=== PATIENT | female | born 1950 | race Caucasian/White ===

== ENCOUNTER 2023-11-01 18:19 | Inpatient (IN) | payer OTHER, SELFPAY ==
[2023-11-01] VITALS (26 sets, daily range): BP systolic 116–172; BP diastolic 53–116; BMI 30.2; BMI 29.0
[2023-11-01 13:25] LABS: % Basophils 0.8 % (0-2); % Eosinophils 2.7 % (0-6); % Immature Granulocytes 0.6 % (0-0.5); % Monocytes 8.6 % (1.7-9.3); % Neutrophils 56.3 % (42.2-75.2); Absolute Basophils 0.1 10^3/uL (0-0.2); Absolute Eosinophils 0.3 10^3/uL (0-0.7); Absolute Immature Granulocytes 0.1 10^3/uL (0-0.05); Absolute Monocytes 0.8 10^3/uL (0.1-0.6); Absolute Neutrophils 5.4 10^3/uL (1.4-6.5); Hematocrit 40.4 % (37.0-47.0); Hemoglobin 13.7 g/dL (12.0-16.0); Mean Corp Hgb Conc. 33.9 g/dL (33.0-37.0); Mean Corpuscular Hgb 29.1 pg (27.0-31.0); Mean Corpuscular Volume 85.8 fL (81.0-99.0); Mean Platelet Volume 10.1 fL (7.4-10.4); Nucleated Red Blood Cells % 0 %; Platelet Count 242 10^3/uL (130-400); Red Blood Cell Count 4.71 10^6/uL (4.20-5.40); Red Cell Dist. Width 12.8 % (11.5-14.5); White Blood Cell Count 9.6 10^3/uL (4.8-10.8)
--- NOTE | 2023-11-01 13:34 | ED.GENMED ---
History of Present Illness
<Spring Mckeon PA-C - Last Filed: 11/01/23 18:52>
General
Chief Complaint: Heart Rate Problem
Source: patient
Exam Limitations: none
Time Seen by Provider: 11/01/23 13:28
Nursing documentation reviewed up to this point in time: agreed with
Travel History
Have you had any contact with someone who has COVID-19?: No
Do you have any symptoms of coronavirus? Fever > 100 degrees, chills, cough, shortness of breath, sore throat, loss of taste or smell, muscle aches, or headache?: No
History of Present Illness
History of Present Illness:
This is a 72-year-old female with a past medical history of endometriosis, vasovagal syncope presenting emergency department today with concerns of a syncopal episode and palpitations. Patient states that she was at [facility] this morning when she
started to feel weak, diaphoretic, and lightheaded. Patient states that she went out to the bathroom and was joined by 2 nurse practitioners to help lower her to the ground. Patient states that she subsequently had a syncopal episode. Patient
states that when she came to it, she felt some chest pain lasting a few minutes as well as palpitations. Currently, patient denies chest pain, denies shortness of breath dizziness. Patient does still feel palpitations. Patient denies any history
of A-fib in the past. Patient does have family history of heart disease in her father who in his 60s due to a heart attack. Patient is no known family history of A-fib. Patient denies any alcohol or tobacco use. Patient does use caffeine
daily, she will have multiple cans of beer per day. Patient does not take a blood thinner
Past History
<Spring Mckeon PA-C - Last Filed: 11/01/23 18:52>
Past History
ED Past Medical History: Other (Endometriosis)
ED Past Surgical History: Gynecological
Social History
Tobacco: Non-smoker
Alcohol: None
Drug: None
Review of Systems
<Spring Mckeon PA-C - Last Filed: 11/01/23 18:52>
Review of Systems
All Other Systems: ROS reviewed and negative except as documented in HPI and ROS
Phy Exam
<Spring Mckeon PA-C - Last Filed: 11/01/23 18:52>
Physical Exam
Physical Exam:
General: Patient is well appearing and in no acute distress; non-toxic
Skin: Warm and dry, no rashes or lesions
Head: Normocephalic, atraumatic
Eyes: Sclera non-icteric. EOMs intact. PERRLA.
Cardiac: Heart rate is irregular, rhythm regular, no murmurs heard, no tenderness palpation external chest wall
Peripheral Vascular: No lower extremity swelling or edema. 2+ dorsalis pedis pulses bilaterally.
Pulm: Normal respiratory effort
Abdomen: No abdominal tenderness
Neuro: CN II-XII intact, no focal neurologic deficits.
Psychiatric: Appropriate mood and affect.
Course
<Spring Mckeon PA-C - Last Filed: 11/01/23 18:52>
Orders/Labs/Results
Orders:
Orders
11/01/23 Lunch
Cholesterol Lowering
At Your Request: Full Participation
Cholesterol Lowering: Sodium, 2 Gram
11/01/23 13:11
Electrocardiogram (*1) Urgent
Reason for Study: Chest Pain
Cardiac Monitoring- Treatment ONCE
EKG- Treatment ONCE
IV Insert/Care/Rem.- Treatment PRN
O2 Therapy [RESP] Urgent
Titrate/Wean O2 to maintain O2 sat greater than (%): 90
Special Instructions: Maintain sats >/=90%
Pulse Ox/spot Check [RESP] Urgent
Quantity: 1
Special Instructions: ON ROOM AIR
11/01/23 13:12
Complete Blood Count/With Diff Urgent
Comprehensive Metabolic Panel Urgent
Magnesium Urgent
Comment: ADDON
TSH Urgent
Comment: ADDON
11/01/23 14:12
0.9% Sodium Chloride 1000 ml [Nss] 1,000 ml IV BOLUS
Diltiazem HCl [Cardizem] 10 mg IV NOW STA
11/01/23 14:15
Diltiazem 125 mg/125 ml Nss [Cardizem] 125 mg in 125 ml IV PER PROTOCOL
Initial dose in mg/hr, then titrate:: 5
Titrate to keep:: Heart rate 80-100 bpm
Titrate by mg/hr:: 5 mg/hr
Frequency of titrations (minutes):: 15
Maximum dose in mg/hr:: 15
11/01/23 14:26
Add On- LAB Urgent
Tests Added?: tropnin
11/01/23 14:46
Troponin I Routine
Comment: Collect Green Top Please
11/01/23 17:23
Admit/Transfer Patient As Directed
Co-Sign Provider:
Level of Care: Inpatient admission
Assign to:: IMU- Intermediate Care
Physician / Group: Megan/Hospitalist
Diagnosis: a.fib with RVR
Reason for Hospitalization: a.fib with RVR
Expected length of stay greater than two midnights?: Yes
ELOS- Estimated Length of Stay in days: 3
I certify the patient meets the requirements for IP care: Yes
11/01/23 17:24
Code Status As Directed
Resuscitation Status: Full Code
11/01/23 17:30
Heparin 05173 Units/250 ml 25,000 units in 250 ml IV PER PROTOCOL
Weight to be used for heparin protocol in kilograms (kg):: 82.4
Protocol:: Cardiac Tx/Acute Coronary
PTT Goal Range to be used:: PTT 73 to 111 seconds
Order type:: Initial
INITIAL Infusion Dose (UNITS/KG/hr) & then follow protocol:: 12 units/kg/hr
Infusion Dose in UNITS/hr & then follow protocol (UNITS/hr):: 1,000
INFUSION RATE in mL/hr & then follow protocol (mL/hr):: 10
PTT less than or equal to 64 seconds:: Increase rate by 200 units/hr (+ 2 mL/hr)
PTT 64.1 to 72.9 seconds:: Increase rate by 100 units/hr (+ 1 mL/hr)
PTT 73 to 111 seconds:: Target Range. No change in rate.
PTT 111.1 to 130.9 seconds:: Decrease rate by 100 units/hr (- 1 mL/hr)
PTT 131 to 199.9 seconds:: HOLD for 1 hr. Then decrease rate by 200 units/hr (- 2 mL/hr)
PTT greater than or equal to 200 seconds:: HOLD for 2 hrs & Notify Provider. Then decrease by 200 units/hr (-
2 mL/hr)
Lab follow-up:: Each change, PTT q6h until 2 consecutive are therapeutic. Then PTT
daily.
11/01/23 17:[address] Non Medication Order As Directed
Physician Order: PTT 6 hours after initial start of Heparin infusion
11/01/23 17:45
Add On- LAB Stat
Tests Added?: magnesium, TSH
11/01/23 18:09
PTT Urgent
Comment: Obtain baseline before beginning heparin infusion if not already collected
11/01/23 18:18
Electrocardiogram (*1) Stat
Reason for Study: Abnormal EKG
EKG- Treatment ONCE
11/01/23 18:30
0.9% Sodium Chloride 1000 ml [Nss] 1,000 ml IV 100 mls/hr
Abnormal Lab Results
11/01/23
13:12
Abs Immat Gran (auto) 0.1 H 10^3/uL
(0-0.05)
Absolute Monos (auto) 0.8 H 10^3/uL
(0.1-0.6)
Immature Gran % 0.6 H %
(0-0.5)
Chloride 108 H mmol/L
(98-107)
Glucose 115 H mg/dl
(70-99)
11/01/23 13:12
11/01/23 13:12
Vital Signs
Initial and Last Documented VS:
Initial Vital Signs
Temp Pulse Resp BP Pulse Ox
97.8 F 141 18 158/110 95
11/01/23 13:06 11/01/23 13:06 11/01/23 13:06 11/01/23 13:06 11/01/23 13:06
Last Documented Vital Signs
Temp Pulse Resp BP Pulse Ox
97.8 F 132 15 140/97 97
11/01/23 13:06 11/01/23 18:00 11/01/23 18:00 11/01/23 17:30 11/01/23 17:30
<Todd Henson, - Last Filed: 11/01/23 15:12>
Orders/Labs/Results
Orders:
Orders
11/01/23 Lunch
Cholesterol Lowering
At Your Request: Full Participation
Cholesterol Lowering: Sodium, 2 Gram
11/01/23 13:11
Electrocardiogram (*1) Urgent
Reason for Study: Chest Pain
Cardiac Monitoring- Treatment ONCE
EKG- Treatment ONCE
IV Insert/Care/Rem.- Treatment PRN
O2 Therapy [RESP] Urgent
Titrate/Wean O2 to maintain O2 sat greater than (%): 90
Special Instructions: Maintain sats >/=90%
Pulse Ox/spot Check [RESP] Urgent
Quantity: 1
Special Instructions: ON ROOM AIR
11/01/23 13:12
Complete Blood Count/With Diff Urgent
Comprehensive Metabolic Panel Urgent
Magnesium Urgent
Comment: JALEESA
TSH Urgent
Comment: ADDON
11/01/23 14:12
0.9% Sodium Chloride 1000 ml [Nss] 1,000 ml IV BOLUS
Diltiazem HCl [Cardizem] 10 mg IV NOW STA
11/01/23 14:15
Diltiazem 125 mg/125 ml Nss [Cardizem] 125 mg in 125 ml IV PER PROTOCOL
Initial dose in mg/hr, then titrate:: 5
Titrate to keep:: Heart rate 80-100 bpm
Titrate by mg/hr:: 5 mg/hr
Frequency of titrations (minutes):: 15
Maximum dose in mg/hr:: 15
11/01/23 14:26
Add On- LAB Urgent
Tests Added?: tropnin
11/01/23 14:46
Troponin I Routine
Comment: Collect Green Top Please
11/01/23 17:23
Admit/Transfer Patient As Directed
Co-Sign Provider:
Level of Care: Inpatient admission
Assign to:: IMU- Intermediate Care
Physician / Group: Megan/Hospitalist
Diagnosis: a.fib with RVR
Reason for Hospitalization: a.fib with RVR
Expected length of stay greater than two midnights?: Yes
ELOS- Estimated Length of Stay in days: 3
I certify the patient meets the requirements for IP care: Yes
11/01/23 17:24
Code Status As Directed
Resuscitation Status: Full Code
11/01/23 17:30
Heparin 01237 Units/250 ml 25,000 units in 250 ml IV PER PROTOCOL
Weight to be used for heparin protocol in kilograms (kg):: 82.4
Protocol:: Cardiac Tx/Acute Coronary
PTT Goal Range to be used:: PTT 73 to 111 seconds
Order type:: Initial
INITIAL Infusion Dose (UNITS/KG/hr) & then follow protocol:: 12 units/kg/hr
Infusion Dose in UNITS/hr & then follow protocol (UNITS/hr):: 1,000
INFUSION RATE in mL/hr & then follow protocol (mL/hr):: 10
PTT less than or equal to 64 seconds:: Increase rate by 200 units/hr (+ 2 mL/hr)
PTT 64.1 to 72.9 seconds:: Increase rate by 100 units/hr (+ 1 mL/hr)
PTT 73 to 111 seconds:: Target Range. No change in rate.
PTT 111.1 to 130.9 seconds:: Decrease rate by 100 units/hr (- 1 mL/hr)
PTT 131 to 199.9 seconds:: HOLD for 1 hr. Then decrease rate by 200 units/hr (- 2 mL/hr)
PTT greater than or equal to 200 seconds:: HOLD for 2 hrs & Notify Provider. Then decrease by 200 units/hr (-
2 mL/hr)
Lab follow-up:: Each change, PTT q6h until 2 consecutive are therapeutic. Then PTT
daily.
11/01/23 17:[address] Non Medication Order As Directed
Physician Order: PTT 6 hours after initial start of Heparin infusion
11/01/23 17:45
Add On- LAB Stat
Tests Added?: magnesium, TSH
11/01/23 18:09
PTT Urgent
Comment: Obtain baseline before beginning heparin infusion if not already collected
11/01/23 18:18
Electrocardiogram (*1) Stat
Reason for Study: Abnormal EKG
EKG- Treatment ONCE
11/01/23 18:30
0.9% Sodium Chloride 1000 ml [Nss] 1,000 ml IV 100 mls/hr
Abnormal Lab Results
11/01/23
13:12
Abs Immat Gran (auto) 0.1 H 10^3/uL
(0-0.05)
Absolute Monos (auto) 0.8 H 10^3/uL
(0.1-0.6)
Immature Gran % 0.6 H %
(0-0.5)
Chloride 108 H mmol/L
(98-107)
Glucose 115 H mg/dl
(70-99)
11/01/23 13:12
11/01/23 13:12
Vital Signs
Initial and Last Documented VS:
Initial Vital Signs
Temp Pulse Resp BP Pulse Ox
97.8 F 141 18 158/110 95
11/01/23 13:06 11/01/23 13:06 11/01/23 13:06 11/01/23 13:06 11/01/23 13:06
Last Documented Vital Signs
Temp Pulse Resp BP Pulse Ox
97.8 F 132 15 140/97 97
11/01/23 13:06 11/01/23 18:00 11/01/23 18:00 11/01/23 17:30 11/01/23 17:30
<Spring Mckeon PA-C - Last Filed: 11/01/23 18:52>
MDM/Problems Addressed
Differential Diagnosis Includes:
Differentials include atrial fibrillation, a flutter, sinus tachycardia, ACS, multifocal atria tachycardia, PE
MDM/Problems Addressed:
A-fib
Chronic conditions affecting care:
Endometriosis, previous syncopal episodes
<Spring Mckeon PA-C - Last Filed: 11/01/23 18:52>
Data Reviewed
Source: patient
Prescriptions/Medications Considered But Not Given:
Considered cardioversion, however patient is stable and patient is not on a blood thinner
<Todd Henson DO - Last Filed: 11/01/23 15:12>
*Pulse Oximetry
Patient hypoxic: no
*EKG
Interpreted by ED Provider?: Yes
Interpretation: abnormal
Rate: tachycardiac
Rhythm: a-fib
Ischemia: other (ST depression noted in inferior lateral leads.)
*Risk Management Specialist Interpretation
Rate: tachycardiac
Interpretation: abnormal
Rhythm: a-fib
*Critical Care Note
Total Time (30-74mins, 75-104mins- exclusive of procedures): 40 minutes
<Spring Mckeon PA-C - Last Filed: 11/01/23 18:52>
Patient Management
Escalation/DeEscalation of care consider admission/obs:
This is a 72-year-old female with a past medical history of endometriosis, vasovagal syncope presenting emergency department today with concerns of a syncopal episode and palpitations. Her EKG here in emergency department demonstrates rapid atrial
fibrillation. Patient supposedly has no history of A-fib, however it appears during a hospitalization in 2019, she briefly went into A-fib however no longer takes any medications for this. Her initial troponin was negative. Patient was started on
a diltiazem drip which was titrated to 15 mg/h, she was also bolused initially, despite this her heart rate remains in the 130s to 140s. Considering her symptoms and her syncopal episode today, she will be admitted for further evaluation and
treatment. Patient agreement with plan. Patient accepted by hospitalist.
ED Attending Note
<Spring Mckeon PA-C - Last Filed: 11/01/23 18:52>
-
Portions of this chart may have been created with voice recognition software.� Occasional wrong word or��sound alike� substitutions may have occurred due to the inherent limitations of voice recognition software.
<Todd Henson DO - Last Filed: 11/01/23 15:12>
ED Attending Note
Patient seen and examined by attending physician: Yes
I performed the substantive portion of visit, reviewed & personally made and approve the management plan that is documented in note by myself or SHANTE.: Yes
ED Attending Note:
72-year-old female presents after she syncopized in [facility]. She apparently had reported some chest pain. the pt cannot recall that. she now has no sx's. Patient states that in the past at some point they did consider her to have A-fib but later
took her off her medications. Patient states she is otherwise pretty healthy. Patient states while in [facility] she started feel overheated and sweaty and passed out. Denies shortness of breath. No leg swelling. No leg pain. No injury. No other
recent illnesses. Exam: Heart irregularly irregular and tachycardic, lungs clear, no lower extremity edema. Assessment and plan: Rate control, labs, check troponin. Anticipate admission
Discharge Plan
Departure
Patient Disposition: Admit
Date of Disposition: 11/01/23
Time of Disposition: 15:48
Admit to: Med/Surg
Presentation/result/management discussed w/ accepting MD/DO: Hospitalist
Patient with high blood pressure during this ER visit?: Yes
Condition: Good
Discharge Problem:
New onset atrial fibrillation
Interventions
Interventions:
*Risk Screen - Suicide Last Done: 11/01/23 13:08
*General Assessment Last Done: 11/01/23 13:08
*Neglect/Abuse Screening Last Done: 11/01/23 13:08
ED- Fall Risk Assessment Last Done: 11/01/23 13:09
*ED COVID-19 Vaccine History Last Done: 11/01/23 13:08
ED- Cardiac Assessment Last Done: 11/01/23 13:08
ED- Pulmonary Assessment Last Done: 11/01/23 13:09
[2023-11-01 13:40] LABS: ALT (SGPT) 12 U/L (0-35); AST (SGOT) 19 U/L (14-36); Albumin 4.1 g/dl (3.5-5.0); Alkaline Phosphatase 98 U/L (38-126); Blood Urea Nitrogen 15 mg/dl (7-17); Calcium 9.2 mg/dl (8.4-10.2); Carbon Dioxide 22 mmol/L (22-30); Chloride 108 mmol/L (98-107); Estimated Creatinine Clearance 59 ml/min; Glucose 115 mg/dl (70-99); Potassium 4.1 mmol/L (3.5-5.1); Sodium 140 mmol/L (135-145); Total Bilirubin 0.8 mg/dl (0.2-1.3); Total Protein 7.3 g/dl (6.3-8.2); eGFR > 60.00
[2023-11-01] MEDS: NSS 1000 IV ×2 (14:44→21:48)
[2023-11-01] MEDS: CARDIZEM 10 MG IV (14:44)
[2023-11-01] MEDS: CARDIZEM 125 IV (14:49)
[2023-11-01 15:25] LABS: Troponin I < 0.012 ng/ml
--- NOTE | 2023-11-01 16:38 | HPS.HSE ---
Family Physician
-
Family Physician: Haydee English
Chief Complaint
-
syncope, chest pain, palpitations
History of Present Illness
This is a 72-year-old female with a past medical history of endometriosis, who presents to the ED after episode of syncope and chest pain while at [facility]. She had a similar episode in 2019 and was admitted here for syncope and humerus fracture, for
which she was found to be in A.fib at that time as well, was started on Warfarin (due to insurance coverage), Amiodarone, and Metoprolol. She was changed from Coumadin to Eliquis in 2020. She was kept on these medications for one year, and says she
went to a [facility] 'across the street,' does not recall which one, and said her numbers were such that she was told she could stop the anticoagulation, and it is unclear but she also stopped the beta riccardo and amiodarone. She is not taking any
medications at this time. In [facility] today, she felt dizziness followed by substernal chest pain, and she passed out. When she came too in [facility], they called EMS and she says her chest pain had resolved. She is currently chest pain free, denies any
current dizziness, no SCHROEDER, no n/v/d, no fevers, no chills, no pulmonary symptoms.
ED txt : Diltiazem drip currently at rate of 15 , heart rate ranging from 108-130s. At one point it went up to 199 HR when she went to use the bathroom.
Medical History
Past Medical History
Past Medical History: Reports Arrhythmia (A.fib 2019, taking off anticoaguation and not on any oral medications currently for rate/rhythm control) and Other (endometriosis)
Past Surgical History: Reports None
Social History
Tobacco: Non-smoker
Alcohol: None
Drug: None
Living: With Family (daughter and grandchild live with her)
Family History
Family History: CAD (Father in his 60s from AMI)
Allergies / Home Medications
Allergies reflects when Allergies were last updated in [facility].
Home Medications with original date entered in [facility]
Allergy/Medication List:
Allergies
Allergy/AdvReac Type Severity Reaction Status Date / Time
Penicillins Allergy Unknown Verified 11/01/23 13:06
Home Medications
No Meds [No Current Medications] 11/01/23
Review of Systems
-
A 12 point ROS was completed and negative except as noted: Yes
Physical Exam
Vital Signs
Vital Signs
Temp Pulse Resp BP Pulse Ox
97.8 F 137 23 125/74 95
11/01/23 13:06 11/01/23 15:45 11/01/23 15:45 11/01/23 15:45 11/01/23 15:45
Physical Exam
General: Well Developed, Well Nourished, No Apparent Distress, Comfortable and Conversant
Respiratory: Clear
Cardiac: Irregular Rhythm and Tachycardia
GI: Soft, Non Tender, Non Distended and Normal Bowel Sounds
Musculoskeletal: No Clubbing, No Cyanosis and No Edema
Neuro: AO x 3, No Motor Deficits and Nonfocal/grossly intact
Psych: Calm
Laboratory Results
-
11/01/23 13:12
11/01/23 13:12
Laboratory Results
Total Bilirubin 0.8 mg/dl (0.2-1.3) 11/01/23 13:12
AST 19 U/L (14-36) 11/01/23 13:12
ALT 12 U/L (0-35) 11/01/23 13:12
Alkaline Phosphatase 98 U/L (38-126) 11/01/23 13:12
Troponin I < 0.012 ng/ml 11/01/23 14:46
Data Reviewed
-
Medical Tests (Nuc Med, Echo, EKG etc): Image Personally Visualized and interpreted and Report Reviewed by me (EKG a.fib with RVR at 134)
Impression/Plan
-
IMPRESSION:
This is a 72-year-old female with a past medical history of endometriosis, who presents to the ED after episode of syncope and chest pain while at [facility]. She had a similar episode in 2019 and was admitted here for syncope and humerus fracture, for
which she was found to be in A.fib at that time as well, was started on Warfarin (due to insurance coverage), Amiodarone, and Metoprolol. She was changed from Coumadin to Eliquis in 2020. She was kept on these medications for one year, and says she
went to a [facility] 'across the street,' does not recall which one, and said her numbers were such that she was told she could stop the anticoagulation, and it is unclear but she also stopped the beta riccardo and amiodarone. She is not taking any
medications at this time. In [facility] today, she felt dizziness followed by substernal chest pain, and she passed out. When she came too in [facility], they called EMS and she says her chest pain had resolved. She is currently chest pain free, denies any
current dizziness, no SCHROEDER, no n/v/d, no fevers, no chills, no pulmonary symptoms.
ED txt : Diltiazem drip currently at rate of 15 , heart rate ranging from 108-130s. At one point it went up to 199 HR when she went to use the bathroom.
#Atrial fibrillation with RVR, not yet controlled on 15 of Diltiazem drip in the ED, associated with chest pain. Currently CP free.
-IMU admission for close monitoring and control of rate, may require BB tonight -discussed adding Metoprolol Tartrate 25 mg once, if rate is not controlled with Cardizem gtt
-start Hep gtt in ED and continue
-serial trop
-gentle IVF overnight
-Cardiology consultation
-check TSH, Mg
-echocardiogram
-CM consult for anticoagulation, likely to be changed to Eliquis tomorrow
-diet now, NPO p midnight pending any possible procedures, to reassess in am if okay for diet.
Full Code
DVT proph-on hep gtt
[2023-11-01 18:31] LABS: Magnesium 2.1 mg/dl (1.6-2.3)
[2023-11-01] MEDS: HEPARIN 25000 UNITS/250 ML IV (18:56)
[2023-11-01 19:01] LABS: TSH 2.24 uIU/ml (0.47-4.68)
--- NOTE | 2023-11-01 22:16 | PTCARENOTE ---
pt arrived from ED- pt is AAOx3- heparin gtt infusing at 1000u/hr, next PTT entered for 0100. troponin drawn with EKG done per order. IV fluids x1 bag hung. pt with bedrest orders currently. pt verbalized understanding, bedpan used for now. pt with
no complaints of pain. RA 96%. NSR/SA on the monitor. pt oriented to new room, call hernandez within reach, care ongoing.
[2023-11-01 22:23] LABS: Troponin I 0.019 ng/ml
[2023-11-02] VITALS (12 sets, daily range): BP systolic 111–170; BP diastolic 56–86; BMI 28.9
[2023-11-02 02:32] LABS: Hematocrit 36.9 % (37.0-47.0); Hemoglobin 12.8 g/dL (12.0-16.0); Mean Corp Hgb Conc. 34.7 g/dL (33.0-37.0); Mean Corpuscular Hgb 29.8 pg (27.0-31.0); Mean Corpuscular Volume 85.8 fL (81.0-99.0); Mean Platelet Volume 10.2 fL (7.4-10.4); Platelet Count 234 10^3/uL (130-400); White Blood Cell Count 9.1 10^3/uL (4.8-10.8)
[2023-11-02 02:50] LABS: INR 1.15; PT 14.5 Sec (11.4-14.6)
[2023-11-02 02:51] LABS: APTT 61.8 Sec (23.4-35.0)
[2023-11-02 02:52] LABS: APTT 57.5 Sec (23.4-35.0)
[2023-11-02 02:59] LABS: Blood Urea Nitrogen 13 mg/dl (7-17); Calcium 9.1 mg/dl (8.4-10.2); Carbon Dioxide 23 mmol/L (22-30); Chloride 109 mmol/L (98-107); Estimated Creatinine Clearance 65 ml/min; Glucose 111 mg/dl (70-99); HDL Cholesterol 47 mg/dl; LDL Cholesterol, Calculated 156 mg/dl; Potassium 4.3 mmol/L (3.5-5.1); Sodium 140 mmol/L (135-145); Total Cholesterol 223 mg/dl (50-199); Triglyceride 101 mg/dl (10-149); Very Low Density Lipoprotein 20 mg/dl (0-30); eGFR > 60.00
[2023-11-02 03:00] LABS: Troponin I 0.024 ng/ml
--- NOTE | 2023-11-02 09:06 | CON.CAR ---
Addendum entered and electronically signed by Prashant Bowens MD 11/02/23 17:11:
I saw and examined the patient.
The CASINO BANKER's note was reviewed and I agree with the note.
Comment: Hx of both PAF and vasovagal syncope. Off meds for some time and last saw Dr. Caicedo on 10/19/2023. We will start with reintroduction of previously effective meds. She can also seek ablation and we will discuss more AFib treatment
options in the office setting after she reestablishes ongoing cardiac care. Watch on tele for bradycardia, etc.
Original Note:
Consultation
Consultation Request
Date/Time Consultation Requested: 11/01/2023 21:00
Date/Time Consultation Performed: 11/02/2023 08:15
Requesting Provider: Dr. Guzman
Performing Provider: YENNY Sanders for Dr. Bowens
Reason for Consultation: Syncope atrial fibrillation with rapid ventricular response
Medical History
-
Chief Complaint: Syncope
History of Present Illness:
This is a 72-year-old female (known to Dr. Caicedo, her primary yard engineer), with endometriosis, paroxysmal atrial fibrillation (self discontinued all medical therapy), dyslipidemia, whitecoat hypertension, and vasovagal syncope who presented to
the emergency department with syncope. Yesterday she woke up and felt her usual self. She had 2 pieces of toast and went to zoroastrianism. While she was in zoroastrianism she felt 'hot and sweaty' and then does not remember much thereafter. She woke up
surrounded by people from zoroastrianism. She is not sure if she was sitting or standing but she was safely lowered to the floor. She does not recall having chest pain but apparently told someone she did have chest pain at zoroastrianism. She did not have any
nausea nor emesis. She presented in atrial fibrillation with rapid ventricular response. Rates were up to the 190s while she was ambulating in the ER. In the emergency department she felt 'fuzzy' when she converted to sinus rhythm. She is having
no chest pain, shortness of breath, nor dizziness.
Past Medical History
Past Medical History: Arrhythmias (Paroxysmal atrial fibrillation), Hypercholesterolemia and Other (Vasovagal syncope, endometriosis)
Social History
Tobacco: Non-Smoker
Alcohol: None
Drug: None
Living: With Family (Daughter and 15-year-old grandson)
Family History
Family History: Other (Father with fatal VA in his 60s.)
Allergies / Home Medications
Allergy/AdvReac Type Severity Reaction Status Date / Time
Penicillins Allergy Unknown Verified 11/01/23 13:06
�Medication �Instructions �Recorded �Confirmed �Type
No Meds [No Current Medications] 11/01/23 11/01/23 History
Review of Systems
-
History Source: Patient
All other systems: Negative unless noted
Respiratory: No Symptoms
Cardiac: No Symptoms
Abdomen/GI: No Symptoms
: No Symptoms
Physical Exam
Vital Signs
Temp Pulse Resp BP Pulse Ox
98.6 F 71 15 117/59 94
11/02/23 03:18 11/02/23 06:00 11/02/23 06:00 11/02/23 06:00 11/02/23 06:00
Lab Results
11/02/23 02:17
11/02/23 02:17
Troponin I 0.024 ng/ml D 11/02/23 02:17
Physical Exam
General: Well Developed, Well Nourished, No Apparent Distress and Comfortable
HEENT: Normocephalic, Anicteric and Moist Mucous Membranes
Respiratory: Clear and Non Labored Respirations
Cardiac: S1/S2 and Regular Rhythm; Negative Peripheral Edema
Breast: Deferred by me
GI: Soft, Non Tender, Non Distended and Normal Bowel Sounds
Rectal: Deferred by Provider
Genito-urinary: No Costovertebral Tender
Musculoskeletal: No Clubbing, No Cyanosis and No Edema
Skin: Warm and Dry
Neuro: AO x 3
Hematologic/Lymphatic: No Lymphadenopathy
Psych: Calm
Impression / Plan
-
Paroxysmal atrial fibrillation
-Back in sinus
-She tolerated metoprolol tartrate 12.5 mg twice daily in the past
-Oral Anticoagulation: Currently on heparin drip, case management to [facility]
-[id number]: score at least 2 (age 65-74, female gender)
Syncope
-No heart block on telemetry
-Echocardiogram
Chest pain
-Does not recall
-Trend troponin, flat
Dyslipidemia
-Recommend resuming statin therapy (she was on atorvastatin 10 mg in the past)
-Lipid panel: TC 223, LDL 156, HDL 47, TG 101
Hyperglycemia, HgbA1c pending
Data Reviewed
-
EKG: Report Reviewed by me (Atrial fibrillation with rapid ventricular response, ST depression in anterolateral leads, T wave inversion in anterior lateral leads, rate 134)
Labs: Labs Reviewed by me
Old Records: Reviewed (Outpatient cardiology notes)
[2023-11-02 09:43] LABS: APTT 98.8 Sec (23.4-35.0)
[2023-11-02] MEDS: LOPRESSOR 12.5 MG PO ×2 (11:36→19:19)
--- NOTE | 2023-11-02 11:57 | CM ---
Patient with Dx Atrial fibrillation with RVR. Room air. Heparin gtt.
Met with patient who resides with her daughter Elena & marcellus Hernandez in a 2 story house with 1 KRIST[address].
The patient has been independent in ADLs and ambulation.
The patient has no DME, prior VN or SNF.
PCP - Haydee English
Pharmacy - [facility]
CM Consults:
Salazar checks Eliquis (apixaban) 5 BID $297 [facility], $381 [facility]
Xarelto (rivaroxaban) 20 daily $297 [facility], $381 [facility]
Pradaxa (dabigatran) 150mg BID $350 [facility], $540 [facility]
Warfarin $ zero [facility], $ zero [facility]
The patient does not know the deductible on her pharmacy plan and it's not listed on her card.
Spoke with [facility]; the patient's pharmacy/med deductible is $250.
The cost of Eliquis for the first month is $297 then $11.20
The cost of Xarelto for the first month is $297 then $11.20
The cost of Pradaxa for the first month is $350 then $4.50
The time spent on the phone with the patient's pharmacy was 28 minutes.
The patient is ok with the med costs if Free Month copay card is available---> message to Dr Mukherjee and Radha RAMON.
Plan issue anticoagulant copay card once med is decided.
Plan home.
--- NOTE | 2023-11-02 13:02 | W.PN.HOSP.TC ---
Today's Communication/Plan
-
Monitor vitals
see plan
Start Eliquis and DC heparin drip
Continue with metoprolol
Transfer out of IMU
check TSH with free t4
Assessment / Plan
Assessment / Plan
General: Well Developed, Well Nourished, No Apparent Distress
Respiratory: CTA, no wheezing
Cardiac: regular rhythm, no tachycardia
GI: Soft, Non Tender, Non Distended
Musculoskeletal: No Cyanosis and No Edema
Neuro: AO x 3, No Motor Deficits and Nonfocal/grossly intact
Psych: Calm
Paroxysmal atrial fibrillation
-Back in sinus
Started back on metoprolol. Patient tolerated well in the past
Patient is okay with cost of Eliquis. Eliquis started. DC heparin drip
-[id number]: score at least 2 (age 65-74, female gender)
check TSH
Syncope
-Echocardiogram pending
Chest pain
denies any chest pain at this moment
trop not significant
HLD
start statin
Prediabetes
A1c 6; follow up outpatient
DVTppx
eliquis
Full code
Anticipated Discharge: Within 24 hours
Subjective/Interval History
-
Date of Service: November 02, 2023
denies pain
Objective Data
-
Labs:
Laboratory Results
11/02/23 11/02/23 11/02/23
02:17 02:17 09:16
WBC 9.1
Hgb 12.8
Hct 36.9 L
Plt Count 234
PT 14.5
INR 1.15
APTT 57.5 H 61.8 H 98.8 H
Sodium 140
Potassium 4.3
Chloride 109 H
Carbon Dioxide 23
BUN 13
Creatinine 0.8
Glucose 111 H
Calcium 9.1
11/02/23 11/02/23
12:09 15:00
WBC
Hgb
Hct
Plt Count
PT
INR
APTT Cancelled Pending
Sodium
Potassium
Chloride
Carbon Dioxide
BUN
Creatinine
Glucose
Calcium
Vital Signs:
Vital Signs
Temp Pulse Resp BP Pulse Ox
98.1 F 71 15 131/56 94
11/02/23 11:05 11/02/23 11:36 11/02/23 06:00 11/02/23 11:36 11/02/23 06:00
I&O
11/01/23 11/02/23 11/03/23
06:59 06:59 06:59
Intake Total 1000 / 1000
Balance 1000 / 1000
--- NOTE | 2023-11-02 15:16 | PTCARENOTE ---
Rec'd pt this AM. remains on heparin drip. NSR. will transition to Eliquis at 1999 with hep gtt to be turned off at 200 per order. OOB with min assist to bathroom. tolerating meals. vital signs stable. downgraded to tele.
[2023-11-02 15:39] LABS: APTT 125.5 Sec (23.4-35.0)
[2023-11-02] MEDS: HEPARIN 25000 UNITS/250 ML IV (15:52)
[2023-11-02] MEDS: LIPITOR 10 MG PO (18:23)
[2023-11-02] MEDS: ELIQUIS 5 MG PO (19:19)
[2023-11-03] VITALS (8 sets, daily range): BP systolic 143–176; BP diastolic 69–90; PULSE 60; BMI 28.8
[2023-11-03 05:26] LABS: % Immature Granulocytes 0.1 % (0-0.5); % Lymphocytes 25.7 % (20.5-51.1); % Neutrophils 62.2 % (42.2-75.2); Absolute Basophils 0.1 10^3/uL (0-0.2); Absolute Eosinophils 0.2 10^3/uL (0-0.7); Absolute Monocytes 0.6 10^3/uL (0.1-0.6); Absolute Neutrophils 4.7 10^3/uL (1.4-6.5); Hematocrit 41.7 % (37.0-47.0); Hemoglobin 13.6 g/dL (12.0-16.0); Mean Corp Hgb Conc. 32.6 g/dL (33.0-37.0); Mean Corpuscular Hgb 29.2 pg (27.0-31.0); Mean Corpuscular Volume 89.7 fL (81.0-99.0); Mean Platelet Volume 10.2 fL (7.4-10.4); Nucleated Red Blood Cells % 0 %; Platelet Count 215 10^3/uL (130-400); Red Blood Cell Count 4.65 10^6/uL (4.20-5.40); Red Cell Dist. Width 12.8 % (11.5-14.5); White Blood Cell Count 7.6 10^3/uL (4.8-10.8)
[2023-11-03 05:58] LABS: Blood Urea Nitrogen 15 mg/dl (7-17); Calcium 9.4 mg/dl (8.4-10.2); Carbon Dioxide 28 mmol/L (22-30); Chloride 105 mmol/L (98-107); Estimated Creatinine Clearance 58 ml/min; Glucose 110 mg/dl (70-99); Potassium 4.4 mmol/L (3.5-5.1); Sodium 140 mmol/L (135-145); eGFR > 60.00
--- NOTE | 2023-11-03 06:10 | PTCARENOTE ---
no acute events overnight. heparin gtt turned off 1999 per order. first dose of eliquis given per AUG. no complaints. care ongoing.
--- NOTE | 2023-11-03 08:51 | W.PN.CD ---
Addendum entered and electronically signed by Prashant Bowens MD 11/03/23 12:15:
Asymptomatic sinus bradycardia noted. Short salvos of atrial tachycardia seen. We may be limited on medical therapy. Given the syncope we will plan on a 2-week biztalk administrator. She might well be served by ablation therapy but if she were
reluctant for ablation we could consider dofetilide which usually is not associated with progressive bradycardia.
Original Note:
Today's Communication / Plan
-
Cardiology will sign off
F/u arranged in our office
Please call with questions
Impression / Plan
-
Paroxysmal atrial fibrillation
-Back in sinus
-She tolerated metoprolol tartrate 12.5 mg twice daily in the past => so far tolerating
-Oral Anticoagulation: Now on Eliquis
-[id number]: score at least 2 (age 65-74, female gender) and likely 3 (mild HTN, home DBP 90 at home in past and mild LVH on echo)
Syncope
- C/w her prior vasovagal, but this episode with PAF first time PAF with syncope
-No heart block on telemetry, will consider more outpt tele (check AF burden and look for more bradys
-Echocardiogram => Nml LV/RV, mild valve disease, mild LVH
Chest pain
-Does not recall
-Trend troponin, flat
- Likely outpatient stress test
Dyslipidemia
-Recommend resuming statin therapy (she was on atorvastatin 10 mg in the past)
-Lipid panel: TC 223, LDL 156, HDL 47, TG 101
- Back on statin
Hyperglycemia, HgbA1c 6 => will benfit from weight loss, low carb diet, and more exercise
Subjective:
Feels well. Tele ok overnight, short run of AT (perhaps 10 beats or so
Physical Exam
Vital Signs/Labs
Vital Signs
Temp Pulse Resp BP Pulse Ox
98.2 F 60 19 158/77 100
11/03/23 03:38 11/03/23 04:00 11/02/23 14:00 11/03/23 03:38 11/02/23 22:55
11/02/23 11/03/23 11/04/23
06:59 06:59 06:59
Actual Weight 78.9 kg 78.4 kg
11/03/23 05:17
11/03/23 05:17
PT 14.5 Sec (11.4-14.6) 11/02/23 02:17
INR 1.15 11/02/23 02:17
APTT Cancelled 11/02/23 22:00
Magnesium 2.1 mg/dl (1.6-2.3) 11/01/23 13:12
Triglycerides 101 mg/dl (10-149) 11/02/23 02:17
LDL Cholesterol, Calc 156 mg/dl 11/02/23 02:17
VLDL Cholesterol, Calc 20 mg/dl (0-30) 11/02/23 02:17
HDL Cholesterol 47 mg/dl 11/02/23 02:17
TSH 2.24 uIU/ml (0.47-4.68) 11/01/23 13:12
LAB Results
11/01/23 11/01/23 11/01/23
14:23 14:46 21:37
Troponin I Cancelled < 0.012 0.019 D
11/02/23 11/02/23
02:17 10:24
Troponin I 0.024 D Cancelled
Physical Exam
Constitutional: No acute distress
EENT: Anicteric
Cardiovascular: Rhythm & rate is regular and Pedal edema is absent
Respiratory: Respiratory effort normal and Lungs clear to auscul.
GI: Soft and Distention absent
Neuro/Psych: AO x 3 and Motor deficits absent
Data Reviewed
-
Date of Service: November 03, 2023
[2023-11-03] MEDS: LOPRESSOR 12.5 MG PO (09:03)
[2023-11-03] MEDS: ELIQUIS 5 MG PO (09:03)
--- NOTE | 2023-11-03 11:45 | W.PN.HOSP.TC ---
Addendum entered and electronically signed by Brannon Mukherjee MD 11/03/23 13:39:
Time of discharge 37 minutes
Addendum entered and electronically signed by Brannon Mukherjee MD 11/03/23 13:36:
Spoke with cardiology. Earlier had episode of atrial tachycardia with small period of bradycardia, patient can still be discharged home with outpatient follow-up. Cardiology will arrange cardiac rehabilitation specialist. Patient beta-riccardo changed to Toprol-XL.
Original Note:
Today's Communication/Plan
-
monitor vitals
see plan
pt/ot
per RN periods of bradycardia now; cards to reevaluate
cw eliquis
dc pending cardiology reevaluation
Assessment / Plan
Assessment / Plan
General: Well Developed, Well Nourished, No Apparent Distress
Respiratory: CTA, no wheezing
Cardiac: regular rhythm, no tachycardia
GI: Soft, Non Tender, Non Distended
Musculoskeletal: No Cyanosis and No Edema
Neuro: AO x 3, No Motor Deficits and Nonfocal/grossly intact
Psych: Calm
Paroxysmal atrial fibrillation
-Back in sinus
Started back on metoprolol. Patient tolerated well in the past
Patient is okay with cost of Eliquis. Eliquis started.
-[id number]: score at least 2 (age 65-74, female gender)
check TSH wnl
likely outpt cardiac rehabilitation specialist per cards
Syncope
cardiology suspecting vasovagal
-Echocardiogram 11/02 with normal EF
now 11/02 with ocassional periods of bradycardia; cards to evaluate
Chest pain
denies any chest pain at this moment
trop not significant
HLD
start statin
Prediabetes
A1c 6; follow up outpatient
DVTppx
eliquis
Full code
Anticipated Discharge: Within 24 hours
Subjective/Interval History
-
Date of Service: November 03, 2023
Denies chest pain
Objective Data
-
Labs:
Laboratory Results
11/03/23
05:17
WBC 7.6
Hgb 13.6
Hct 41.7
Plt Count 215
Sodium 140
Potassium 4.4
Chloride 105
Carbon Dioxide 28
BUN 15
Creatinine 0.9
Glucose 110 H
Calcium 9.4
Vital Signs:
Vital Signs
Temp Pulse Resp BP Pulse Ox
98.2 F 62 19 152/69 100
11/03/23 07:05 11/03/23 09:03 11/02/23 14:00 11/03/23 09:03 11/03/23 09:33
I&O
11/02/23 11/03/23 11/04/23
06:59 06:59 06:59
Intake Total 1000 / 1000
Balance 1000 / 1000
--- NOTE | 2023-11-03 11:59 | PTCARENOTE ---
Pt with some sinus valdez with HR dipping 40s briefly. notified Cardiology CLAIM SPECIALIST and Dr. Mukherjee. Pt then with burst of tachycardia to 140s, briefly, back to sinus valdez with HR 50s now. updated CARDS LOANS OFFICER and Dr. Mukherjee. Stat EKG ordered per protocol.
--- NOTE | 2023-11-03 13:40 | W.DCSUMMARY ---
Discharge Summary
Discharge Data
Date of Admission: 11/01/23
Date of Discharge: 11/03/23
-
Pending Results: No
Hospital Course
72-year-old female with past medical history of atrial fibrillation, hyperlipidemia came to the hospital after syncopal episode with atrial fibrillation with rapid ventricular rate. Patient was initially started with IV heparin which was later
transitioned to Eliquis. For rate control she was started on metoprolol. Prior to her discharge she had a brief run of atrial tachycardia along with periods of bradycardia. Cardiology recommended patient to follow-up with them outpatient and they
will set up outpatient cardiac monitoring. Patient metoprolol was then changed to metoprolol succinate. Her symptoms continue to improve and she did not had any further episodes. Once patient was improving, she was then discharged home with
instructions to follow-up with all her physicians outpatient.
Discharge Plan
-
Patient Disposition: Home (Routine Discharge)
Discharge Diagnosis/Procedures: Atrial fibrillation with rapid ventricular rate
Periods of bradycardia
Syncope
Prediabetes
Diet: As tolerated
Activity: As tolerated
Driving Restrictions: As prior to admission
Others Tests: An outpatient 2-week heart monitor is being arranged by the cardiology office.
Referrals:
Haydee English PA [Family Provider] - in less than 1 week
Radha Belcher CRNP [Specified Professional Personl] - 11/13/23 7:40 am
Prescriptions:
New
atorvastatin 10 mg Tablet
10 mg PO QPM Qty: 30 0RF
metoprolol succinate 25 mg Tablet Extended Release 24 Hr
25 mg PO HS Qty: 30 0RF
Eliquis 5 mg Tablet
5 mg PO BID Qty: 60 0RF
Discharge Orders:
Discharge Patient (As Directed); Ordered 11/03/23
Ordered By: Brannon Mukherjee
Discharge Date and Time
Discharge Date/Time: 11/03/23 14:47
Print Language: NEPALESE
--- NOTE | 2023-11-03 13:59 | PTCARENOTE ---
Pt stable for d.c. per cards and hospitilist. Reviewed d.c. instructions with pt who verbalized understanding. Daughter will be here shortly to pick her up for dc
--- NOTE | 2023-11-03 17:54 | CM ---
Patient with Dx Atrial fibrillation with RVR.
Met with patient who was preparing for discharge.
The patient says he feels ready for discharge home today. IMM completed.
Provided Eliquis Free Month card.
The patient's friend will provide transport home today.
Plan home today.
== END 2023-11-03 14:47 | disposition home or self-care (01) | DRG 310 ==
LOC: IMU 18:19
PROVIDERS: Physician Assistant; ADMITTING PHYSICIAN Internal Medicine; ATTENDING PHYSICIAN Internal Medicine; EMERGENCY PHYSICIAN Emergency Medicine; FAMILY PHYSICIAN Physician Assistant Medical; OTHER PHYSICIAN Internal Medicine Cardiovascular Disease
DX: I48.0 Paroxysmal atrial fibrillation (principal); R00.2 Palpitations; N80.9 Endometriosis, unspecified; R55 Syncope and collapse; E78.00 Pure hypercholesterolemia, unspecified; I11.9 Hypertensive heart disease without heart failure; I47.19 Other supraventricular tachycardia; R07.2 Precordial pain; R73.9 Hyperglycemia, unspecified; R73.03 Prediabetes; Z88.0 Allergy status to penicillin; Z82.49 Family history of ischemic heart disease and other diseases of the circulatory system
CPT/HCPCS: 80048; 80053; 80061; 83036; 83735; 84443; 84484; 85025; 85027; 85610; 85730; 93005; 93306; 96361; 96374; 97161; 99291